=== PATIENT | male | born 1990 | race Two or more races ===

== ENCOUNTER 2023-10-25 02:05 | Emergency (ER) | payer OTHER ==
[~2023-10-25] VITALS: Ht 185.4 cm; Wt 92.8 kg
[2023-10-25 04:17] VITALS: BP 128/80; PULSE 60; RESP 16; TEMP 98.3; O2SAT 97
[2023-10-25] MEDS ORDERED: AUG875T PO (04:17)
[2023-10-25] MEDS: TETANUS-DIPTH-ACEL PERTUSSIS 0.5ML SYR Tdap IM ONE (04:21)
[2023-10-25] MEDS: KETOROLAC TROMETH 30 MG/ML 1ML VIAL IM ONE (04:21)
== END 2023-10-25 04:37 | disposition home or self-care (01) ==
LOC: ER 02:05
DX: S61.213A Laceration without foreign body of left middle finger without damage to nail, initial encounter (principal); Z23 Encounter for immunization; W54.0XXA Bitten by dog, initial encounter; Y93.89 Activity, other specified; Y92.89 Other specified places as the place of occurrence of the external cause; Y99.8 Other external cause status
CPT/HCPCS: 90471; 90715; 96372; 99284; J1885